=== PATIENT | male | born 2000 | race Caucasian/White ===

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

== ENCOUNTER 2025-09-11 16:45 | Emergency (ER) | payer OTHER ==
[~2025-09-11] VITALS: Ht 188 cm; Wt 104.3 kg
[~2025-09-11 16:45] MED LIST changes: +NAPR550 PO; +Robaxin500 MG PO
[2025-09-11 19:26] VITALS: BP 154/86
== END 2025-09-11 19:27 | disposition home or self-care (01) ==
LOC: ER 16:45
DX: R07.9 Chest pain, unspecified (principal); F17.290 Nicotine dependence, other tobacco product, uncomplicated
CPT/HCPCS: 71046; 93005; 93010; 99285-25; A9270